=== PATIENT | male | born 2000 | race Caucasian/White ===

== ENCOUNTER 2023-06-02 20:43 | Emergency (ER) | payer BC ==
[~2023-06-02] VITALS: Ht 185.4 cm; Wt 57.6 kg
[2023-06-02 20:55] VITALS: BP_SYST 123; PULSE 82; RESP 16; TEMP 98; O2SAT 100
[2023-06-02 21:46] VITALS: BP_SYST 123; PULSE 82; RESP 16; TEMP 98; O2SAT 100
== END 2023-06-02 21:46 | disposition home or self-care (01) ==
LOC: SED 20:43
DX: H57.89 Other specified disorders of eye and adnexa (principal); F41.9 Anxiety disorder, unspecified; R55 Syncope and collapse; Z79.899 Other long term (current) drug therapy
CPT/HCPCS: 99281